=== PATIENT | female | born 1995 | race Caucasian/White ===

== ENCOUNTER 2018-09-21 19:16 | Emergency (ER) | payer MEDICAID, MEDICARE | END 2018-09-21 20:43 | disposition left against medical advice (07) | LOC: ER 20:15 | DX: Z53.21 Procedure and treatment not carried out due to patient leaving prior to being seen by health care provider (principal) ==

== ENCOUNTER 2020-04-12 10:36 | Emergency (ER) | payer MEDICAID, MEDICARE ==
[~2020-04-12] VITALS: Ht 154.9 cm; Wt 81.0 kg
[2020-04-12 10:41] VITALS: BP 131/79
== END 2020-04-12 13:30 | disposition home or self-care (01) ==
LOC: ER 10:36
DX: T19.2XXA Foreign body in vulva and vagina, initial encounter (principal); X58.XXXA Exposure to other specified factors, initial encounter
CPT/HCPCS: 99284